=== PATIENT | male | born 1995 | race Caucasian/White ===

== ENCOUNTER 2016-11-28 21:56 | Emergency (ER) | payer OTHER ==
[2016-11-28 22:26] LABS: % IMMATURE GRANULYOCYTES 0.2 % (0.0-1.1); ABSOLUTE IMMATURE GRANULOCYTES 0.02 10^3/uL (0.00-0.10); ADD DIFF? NO; ADD MORPH? NO; ADD SCAN? NO; ATYPICAL LYMPHOCYTE FLAG 0 (0-99); FRAGMENT RBC FLAG 0 (0-99); HEMATOCRIT 49.1 % (40.0-51.0); HEMOGLOBIN 17.3 g/dL (13.7-17.5); LEFT SHIFT FLG 0 (0-99); LIPEMIA HEMOLYSIS FLAG 90 (0-99); MEAN CELL HEMOGLOBIN 32.8 pg (27.9-34.1); MEAN CELL HEMOGLOBIN CONCENTR. 35.2 g/dL (32.4-36.7); MEAN CELL VOLUME 93.2 fL (81.5-99.8); MEAN PLATELET VOLUME 9.3 fL (8.7-11.7); PLATELET CLUMPS FLAG 0 (0-99); PLATELET COUNT 230 10^3/uL (150-400); RED BLOOD CELL COUNT 5.27 10^6/uL (4.40-6.38); RED CELL DISTRIBUTION WIDTH 11.9 % (11.5-15.2)
[2016-11-28 22:40] LABS: ANION GAP 13 mEq/L (8-16); CALCIUM 9.3 mg/dL (8.5-10.4); CARBON DIOXIDE 23 mEq/l (22-31); CHLORIDE 102 mEq/L (97-110); CREATININE 1.3 mg/dL (0.7-1.3); ETHANOL SERUM < 10 mg/dL (0-10); GLOMERULAR FILTRATION RATE > 60; GLUCOSE 117 mg/dL (70-100); POTASSIUM 3.6 mEq/L (3.5-5.2); SODIUM 138 mEq/L (134-144)
--- NOTE | 2016-11-28 23:22 | EDPHY ---
H & P Stated Complaint: M1 - Personal History Current Tetanus Diphtheria and Acellular Pertussis (TDAP): Yes - Medical/Surgical History Hx Asthma: No Hx Chronic Respiratory Disease: No Hx Diabetes: No Hx Cardiac Disease: No Hx Renal Disease: No Hx Cirrhosis: No Hx Alcoholism: No Hx HIV/AIDS: No Hx Splenectomy or Spleen Trauma: No Other PMH: denies - Social History Smoking Status: Current every day smoker Time Seen by Provider: 11/28/16 22:57 HPI/ROS: Chief Complaint: Suicidal, homicidal HPI: A 20-year-old male being brought in by police on a mental health hold. Patient is homeless. States he has been using meth, last used meth yesterday. He is feeling suicidal is also been was expressing some homicidal ideation. States he is feeling down. Right now denies being suicidal or homicidal. Denies other past medical history. No recent injuries. ROS: 10 point Review of Systems is negative except as noted in the HPI. PMH: Denies Social History: positive marijuana and meth Family History: non-contributory Physical Exam: Gen: Awake, Alert, no distress, disheveled HEENT: Nose: no rhinorrhea Eyes: PERRLA, EOMI Mouth: Moist mucosa Neck: Supple, no JVD Chest: nontender, lungs clear to auscultation Heart: S1, S2 normal, no murmur Abd: Soft, non-tender, no guarding Back: no CVA tenderness, no midline tenderness Ext: no edema, non-tender Skin: no rash Neuro: CN II-XII intact, Sensation grossly intact, Strength 5/5 in bilateral upper and lower extremities (Keegan Garcia) Constitutional: Initial Vital Signs Temperature (C) 36.6 C 11/28/16 22:07 Heart Rate 135 H 11/28/16 22:07 Respiratory Rate 16 11/28/16 22:07 Blood Pressure 148/96 H 11/28/16 22:07 O2 Sat (%) 95 11/28/16 22:07 O2 Delivery Mode Room Air Allergies/Adverse Reactions: No Known Allergies Allergy (Unverified 11/28/16 22:06) Home Medications: Medication Instructions Recorded NK [No Known Home Meds] 11/28/16 Medical Decision Making ED Course/Re-evaluation: 20-year-old patient has been using meth was expressing suicidal and homicidal ideation. Last meth use was yesterday. Patient denies suicidal at this time. He is medically cleared for mental health evaluation. Patient is asking for some help him sleep. I have ordered Ativan 2 mg p.o. Patient increasingly agitated, oral Zyprexa has ordered 0700 patient signed out to Dr. Royal pending metabolism of his meth and mental health evaluation. (Keegan Garcia) Other Provider: Care assumed from Genny at 2:30 p.m. with plan for discharge when awake. The patient's mental health hold has been lifted and he is approved for discharge per Dr. Royal. I did not personally evaluate the patient (Bulmaro Mckenzie) - Data Points Laboratory Results: Laboratory Results 11/28/16 22:15 11/28/16 22:15 Medications Given: Discontinued Medications Haloperidol Lactate (Haldol Injection) 5 mg IM EDNOW ONE Stop: 11/29/16 07:02 Last Admin: 11/29/16 07:20 Dose: 5 mg Lorazepam (Ativan) 2 mg PO EDNOW ONE Stop: 11/29/16 00:07 Last Admin: 11/29/16 00:11 Dose: 2 mg Lorazepam (Ativan) 2 mg PO EDNOW ONE Stop: 11/29/16 05:45 Last Admin: 11/29/16 05:45 Dose: 2 mg Lorazepam (Ativan Injection) 2 mg IM EDNOW ONE Stop: 11/29/16 07:02 Last Admin: 11/29/16 07:20 Dose: 2 mg Olanzapine (Zyprexa Zydis) 5 mg PO EDNOW ONE Stop: 11/29/16 03:18 Last Admin: 11/29/16 03:26 Dose: 5 mg Olanzapine (Olanzapine) 5 mg PO ONCE ONE Stop: 11/29/16 04:16 Last Admin: 11/29/16 04:16 Dose: 5 mg Olanzapine (Zyprexa Zydis) 5 mg PO EDNOW ONE Stop: 11/29/16 05:45 Last Admin: 11/29/16 05:45 Dose: 5 mg Departure - Departure Disposition: Home, Routine, Self-Care Clinical Impression: Methamphetamine abuse Condition: Good Instructions: Methamphetamine Abuse (ED) Referrals: Mariela Rodriguez MD [Medical Doctor] - As per Instructions
[2016-11-28 23:36] VITALS: RESP 18
[2016-11-29] MEDS ORDERED: LORazepam 1 MG TAB PO ONE ×2 (00:06→05:44)
[2016-11-29] MEDS ORDERED: OLANZapine DISINTEGR 5 MG TAB PO ONE ×2 (03:17→05:44)
[2016-11-29] MEDS ORDERED: OLANZapine DISINTEGR 5 MG TAB ONE ×2 (03:17→05:32)
[2016-11-29] MEDS ORDERED: OLANZapine 5 MG TAB PO ONE (04:15)
[2016-11-29] MEDS ORDERED: LORazepam 1 MG TAB ONE (05:32)
[2016-11-29] MEDS ORDERED: LORazepam 2 MG/ML INJ IM ONE (07:01)
[2016-11-29] MEDS ORDERED: HALOPERIDOL LACT 5 MG/ML INJ IM ONE (07:01)
[2016-11-29 16:00] VITALS: BP 113/79; PULSE 100; TEMP 97.7; O2SAT 97
--- NOTE | 2016-11-29 16:27 | ASMTCMCOM ---
CM Note CM Note Notes: Pt brought in to [facility] by [employer]. Pt is homeless, living out of his car and he frequently uses methamphetamine. He reported last use of prior day. Upon discharge ED RN requested local bus pass to assist client with returning to his car. Date Signed: 11/29/2016 03:56 PM Electronically Signed By:Maximino Hernandez LCSW
== END 2016-11-29 16:00 | disposition home or self-care (01) ==
DX: F15.10 Other stimulant abuse, uncomplicated (principal); F17.200 Nicotine dependence, unspecified, uncomplicated
CPT/HCPCS: 80305; G0480; J2060

== ENCOUNTER 2016-12-02 18:36 | Emergency (ER) | payer OTHER ==
[2016-12-02 18:41] VITALS: BP 128/76; PULSE 90; RESP 16; TEMP 98.1; O2SAT 98
--- NOTE | 2016-12-02 19:41 | EDPHY ---
H & P Time Seen by Provider: 12/02/16 19:25 HPI/ROS: HPI Wants detox. 20-year-old male on foot. Has been seen in our emergency department in the past. Has a history of street drug abuse, methamphetamine abuse. Comes the emergency department telling me that he is going to enroll in a 30 day detox program before he enrolled in this program he wants to detox at our hospital from methamphetamine for few days. He denies drinking alcohol tonight. He reports that he has used methamphetamine today. He denies being significantly depressed. He denies being suicidal. He has no other complaints. ROS: Constitutional: No fever, no chills. No weakness. Eyes: No discharge. No changes in vision. ENT: No sore throat. No nasal congestion or rhinorrhea. Respiratory: No cough. No shortness of breath. Cardiac: No chest pain, no palpitations. Gastrointestinal: No abdominal pain, no vomiting, no diarrhea. Genitourinary: No hematuria. No dysuria or increased frequency with urination. Musculoskeletal: No back pain. No neck pain. No myalgias or arthralgias. Skin: No rashes. Neurological: No headache. No focal weakness or altered sensation. Past medical history: Drug abuse. Social history: Homeless. Smoker. As above. Here by himself. Physical Exam: General Appearance: Alert, no distress. This patient is responding to questions appropriately and in full sentences. This patient appears well- hydrated and well-nourished. Eyes: Pupils equal and round no pallor or injection. No lid edema, erythema or injection. Respiratory: There are no retractions, lungs are clear to auscultation with good air movement bilaterally. Cardiovascular: Regular rate and rhythm. No murmur. Gastrointestinal: Abdomen is soft and nontender, no masses, bowel sounds normal. No focal tenderness at McBurney's point. No Sweet sign. Neurological: Motor sensory function is grossly intact. Cranial nerves are normal. Gait is normal. Skin: Warm and dry, no rashes. Musculoskeletal: Neck is supple and nontender. Extremities are symmetrical. All joints range without pain or impingement. Psychiatric: No agitation. No depression. Database: EKG: Imaging: Procedures: Emergency department course: I explained to the patient that we did not offer detox here at our hospital for methamphetamine. I explained I could provide him with a cab voucher to go to the [facility]. He was in agreement with this plan. I discussed follow-up through [facility] to discuss other detox program options. Return to emergency department precautions reviewed with him. All of his questions were answered. He was discharged in good condition. Differential Diagnosis: The differential diagnosis on this patient includes but is not limited to methamphetamine/street drug abuse. Delirium tremens, significant sympathomimetic toxidrome, suicidal ideations, major depression unlikely. This represents a partial list of diagnoses considered. These considerations are based on history, physical exam, past history, reassessment and diagnostic testing. Smoking Status: Current every day smoker Constitutional: Initial Vital Signs Temperature (C) 36.7 C 12/02/16 18:38 Heart Rate 90 12/02/16 18:38 Respiratory Rate 16 12/02/16 18:38 Blood Pressure 128/76 H 12/02/16 18:38 O2 Sat (%) 98 12/02/16 18:38 O2 Delivery Mode Room Air Allergies/Adverse Reactions: No Known Allergies Allergy (Verified 12/02/16 18:37) Home Medications: Medication Instructions Recorded NK [No Known Home Meds] 11/28/16 Departure - Departure Disposition: Home, Routine, Self-Care Clinical Impression: Methamphetamine abuse Condition: Good Instructions: Methamphetamine Abuse (ED) Additional Instructions: Read and follow provided instructions. Follow-up with [facility] for ongoing healthcare needs as well as discussion regarding detox treatment options. Return to the emergency department for worsening symptoms or other serious concerns. Referrals: [facility] Detox 24 Hours [Outside] - As per Instructions [facility] [Outside] - As per Instructions
== END 2016-12-02 19:54 | disposition home or self-care (01) ==
DX: F15.10 Other stimulant abuse, uncomplicated (principal); F17.200 Nicotine dependence, unspecified, uncomplicated